=== PATIENT | male | born 1975 | race Caucasian/White ===

== ENCOUNTER 2017-12-03 10:11 | Emergency (ER) | payer OTHER ==
[~2017-12-03] VITALS: Ht 199.4 cm; Wt 81.6 kg
[~2017-12-03 10:11] MED LIST: AMI25 PO; DIPH-740 PO; DOCU-416 PO; GAB800PT PO; GABA-549 PO; IBUP600T22 PO; LOR5 PO; MULT-1379 PO; NIC10R INH; OMEG-23 PO; OXY40 PO; OXYC-511 PO; PAR20 PO; RISP-29 PO
[2017-12-03] MEDS ORDERED: CARB400T8 PO (10:47)
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
[2017-12-03] MEDS ORDERED: BUPR1PAT (11:30)
[2017-12-03] MEDS ORDERED: GABAPENTIN 100 MG CAP PO ONE (11:35)
[2017-12-03] MEDS ORDERED: GABAPENTIN 300 MG CAP PO ONE (11:35)
[2017-12-03 11:39] LABS: PLATELET COUNT, AUTOMATED 404 K/uL (150-450)
--- NOTE | 2017-12-03 12:04 | EKG ---
FACILITY: [facility] PATIENT NAME: GAVNI VIVAS : [id number] MR: [id number] V: [id number] EXAM DATE: ORDERING PHYSICIAN: GAMALIEL CODY TECHNOLOGIST: TERI Dan Reason : PYSCH Blood Pressure : / mmHG Vent. Rate : 090 BPM Atrial Rate : 090 BPM P-R Int : 178 ms QRS Dur : 092 ms QT Int : 368 ms P-R-T Axes : 067 041 061 degrees QTc Int : 450 ms Normal sinus rhythm Normal ECG No previous ECGs available Confirmed by MAXIMO TRIPLETT ([id number]) on 12/04/2017 7:44:29 AM Referred By: STEPHANIE Confirmed By:MAXIMO TRIPLETT
[2017-12-03] MEDS ORDERED: NICOTINE INH SYSTEM 10 MG/INH INH PRN (13:00)
[2017-12-03] MEDS ORDERED: GABA-506 PO (16:17)
== END 2017-12-03 13:45 ==
LOC: ER 10:12
DX: F25.0 Schizoaffective disorder, bipolar type (principal); F17.200 Nicotine dependence, unspecified, uncomplicated; I49.9 Cardiac arrhythmia, unspecified
CPT/HCPCS: 36415; 80305; 80320; 80329; 81001; 82040; 82247; 82310; 82374; 82435; 82565; 82947; 83735; 84075; 84132; 84155; 84295; 84443; 84450; 84460; 84484; 84520; 85025; 93005; 99284

== ENCOUNTER 2017-12-03 13:35 | Inpatient (IN) | payer OTHER ==
[~2017-12-03] VITALS: Ht 182.9 cm; Wt 80.3 kg
[~2017-12-03 13:35] MED LIST changes: +BUPR1PAT; +CARB400T8 PO
[2017-12-03] MEDS ORDERED: MAG HYD/AL HYD/SIMETH 30ML UDC PO PRN (14:15)
[2017-12-03 14:30] VITALS: BP 120/92
[2017-12-03] MEDS: NICOTINE CARTRIDGE 1 EA PO PRN (14:50)
[2017-12-03] MEDS: NICOTINE INH SYSTEM 10 MG/INH INH PRN ×2 (14:50→19:28)
[2017-12-03] MEDS: DIAZEPAM 10 MG TAB PO PRN ×4 (14:50→21:12)
[2017-12-03] MEDS ORDERED: GABA-506 PO (16:17)
[2017-12-03] MEDS: GABAPENTIN 100 MG CAP PO SCH ×2 (17:27→21:12)
[2017-12-03] MEDS: GABAPENTIN 300 MG CAP PO SCH ×2 (17:31→21:12)
[2017-12-03] MEDS: DOCUSATE SODIUM 100 MG CAP PO SCH (21:12)
[2017-12-04 03:18] VITALS: BP 100/60
[2017-12-04] MEDS: DOCUSATE SODIUM 100 MG CAP PO SCH ×2 (08:27→20:42)
[2017-12-04] MEDS: MULTIVITAMINS TAB PO SCH (08:27)
[2017-12-04] MEDS: THIAMINE HCL 100 MG TAB PO SCH (08:28)
[2017-12-04] MEDS: GABAPENTIN 300 MG CAP PO SCH ×4 (08:28→20:42)
[2017-12-04] MEDS: FOLIC ACID 1 MG TAB PO SCH (08:28)
[2017-12-04] MEDS: GABAPENTIN 100 MG CAP PO SCH ×4 (08:28→20:43)
[2017-12-04 08:47] VITALS: BP 123/97
[2017-12-04] MEDS: NICOTINE INH SYSTEM 10 MG/INH INH PRN ×3 (09:04→15:58)
[2017-12-04 10:50] VITALS: BP 121/95
[2017-12-04] MEDS ORDERED: DIAZEPAM 10 MG TAB PO ONE (11:10)
[2017-12-04] MEDS: carBAMazepine 200 MG TAB PO SCH ×2 (11:57→20:43)
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
[2017-12-04] MEDS: hydrOXYzine PAMOATE 25 MG CAP PO PRN (16:19)
[2017-12-04 16:44] VITALS: BP 116/80
[2017-12-04 19:31] VITALS: BP 130/84
[2017-12-04] MEDS ORDERED: risperiDONE 1 MG TAB PO SCH (21:00)
[2017-12-05 01:31] VITALS: BP 114/80
[2017-12-05] MEDS: GABAPENTIN 100 MG CAP PO SCH ×4 (09:00→21:03)
[2017-12-05] MEDS: MULTIVITAMINS TAB PO SCH (09:08)
[2017-12-05] MEDS: GABAPENTIN 300 MG CAP PO SCH ×4 (09:08→21:03)
[2017-12-05] MEDS: FOLIC ACID 1 MG TAB PO SCH (09:08)
[2017-12-05] MEDS: carBAMazepine 200 MG TAB PO SCH ×2 (09:08→21:04)
[2017-12-05] MEDS: THIAMINE HCL 100 MG TAB PO SCH (09:08)
[2017-12-05] MEDS: DOCUSATE SODIUM 100 MG CAP PO SCH ×2 (09:08→21:03)
[2017-12-05] MEDS: NICOTINE INH SYSTEM 10 MG/INH INH PRN ×3 (09:11→18:26)
--- NOTE | 2017-12-05 10:17 | BHS Progress Note ---
[facility] - Subjective Progress Notes Subjective "Getting better slowly." Continues to want to go to the [facility] for treatment. Rates anxiety level a 6. Suicidal Ideation: None Homicidal Ideation: None [facility] - Objective Physical Exam Vital Signs Vital Signs 12/04/17 12/05/17 16:44 01:31 Temp 98.7 Pulse 110 Resp 18 B/P (MAP) 114/80 (91) Pulse Ox 94 O2 Delivery Room Air Muscle Strength and Tone: WNL Gait and Station: Steady [facility] Medications Reviewed: Side Effects, Benefits of Medication, Risks Allergies Reviewed: Yes Mental Status Exam General Appearance: Casual, Well Groomed, Good Eye Contact, Cooperative, Polite , Good Interaction, No Unkept, No Tearful, No Psychomotor Agitation, No Bizarre Mannerisms, No Tics Speech: Clear, Spontaneous, Normal Rate, Normal Rhythm, Normal Volume, Normal Tone Mood: Euthymic Affect: Full and Appropriate, Calm Thought Process: Organized, Logical, Goal Directed, No Loose Associations, No Flight of Ideas Thought Content: No Suicidal Ideation, No Homicidal Ideation, Auditory Halllucinations, Visual Hallucinations Sensorium: Clear Cognition: Alert & Oriented-Person, Alert & Oriented-Place, Alert & Oriented- Time, [id number] Memory: Immediate, Recent, Remote Intelligence: Average Insight Judgment: Fair [facility] Assessment and Plan [id number] Encounter Date: Dec 05, 2017 [id number] Encounter Time: 10:00 [facility] Plan: Admit to Unit, Necessary Precautions, Individual/Group Therapy, Admin /Titrate Meds, Educate Patient (Continue discharge planning) Tobacco Medications: Started Problems: CINDY ZHU NP Dec 05, 2017 10:17
[2017-12-05] MEDS: NICOTINE CARTRIDGE 1 EA PO PRN ×2 (15:41→18:26)
[2017-12-05] MEDS: hydrOXYzine PAMOATE 25 MG CAP PO PRN (15:41)
[2017-12-05 20:15] VITALS: BP 110/75
[2017-12-05] MEDS: risperiDONE 1 MG TAB PO SCH (21:03)
[2017-12-06 06:03] VITALS: BP 127/90
[2017-12-06 08:00] VITALS: BP 145/96
[2017-12-06] MEDS: FOLIC ACID 1 MG TAB PO SCH (08:08)
[2017-12-06] MEDS: GABAPENTIN 100 MG CAP PO SCH ×4 (08:08→21:04)
[2017-12-06] MEDS: GABAPENTIN 300 MG CAP PO SCH ×4 (08:08→21:05)
[2017-12-06] MEDS: THIAMINE HCL 100 MG TAB PO SCH (08:08)
[2017-12-06] MEDS: DOCUSATE SODIUM 100 MG CAP PO SCH ×2 (08:08→21:04)
[2017-12-06] MEDS: MULTIVITAMINS TAB PO SCH (08:08)
[2017-12-06] MEDS: carBAMazepine 200 MG TAB PO SCH ×2 (08:09→21:04)
[2017-12-06] MEDS: NICOTINE INH SYSTEM 10 MG/INH INH PRN ×5 (09:45→21:03)
--- NOTE | 2017-12-06 11:21 | BHS Progress Note ---
[facility] - Subjective Progress Notes Subjective Patient interacting well this AM, and denies any other concerns today. states he is ready to go back to [place] as soon as he can.. States sleep is good, and appetite good. Patient reports good mood overall. Denies any other concerns. Will continue treatment, no changes. Will plan for discharge as soon transportation can be arranged. Suicidal Ideation: None Homicidal Ideation: None [facility] - Objective Physical Exam Vital Signs Vital Signs Date Time Temp Pulse Resp B/P (MAP) Pulse Ox O2 Delivery O2 Flow Rate FiO2 12/06/17 08:00 100.5 117 145/96 (112) 93 Room Air 12/06/17 06:03 16 Hematology Test 12/03/17 10:40 Carbamazepine (Tegretol) Level < 3.0 ug/ml Carbamazepine Time Since Last Dose Unk Carbamazepine Last Dose Date Unk Chemistry Test 12/03/17 10:40 Carbamazepine (Tegretol) Level < 3.0 ug/ml Carbamazepine Time Since Last Dose Unk Carbamazepine Last Dose Date Unk Toxicology Test 12/03/17 10:40 Carbamazepine (Tegretol) Level < 3.0 ug/ml Carbamazepine Time Since Last Dose Unk Carbamazepine Last Dose Date Unk Muscle Strength and Tone: WNL Gait and Station: Steady [facility] Medications Reviewed: Side Effects, Benefits of Medication, Risks Allergies Reviewed: Yes Mental Status Exam General Appearance: Casual, Well Groomed, Good Eye Contact, Cooperative, Polite , Good Interaction, No Unkept, No Tearful, No Psychomotor Agitation, No Bizarre Mannerisms, No Tics Speech: Clear, Spontaneous, Normal Rate, Normal Rhythm, Normal Volume, Normal Tone Mood: Euthymic (stated good today ) Affect: Full and Appropriate, Calm, No Withdrawn, No Tearful, No Anxious, No Agitated Thought Process: Organized, Logical, Goal Directed, No Loose Associations, No Flight of Ideas Thought Content: No Suicidal Ideation, No Homicidal Ideation, No Delusions, Auditory Halllucinations (baseline today ), No Visual Hallucinations, No Thought Broadcasting, No Ideas of Reference, No Obsessions, No Compulsions Sensorium: Clear Cognition: Alert & Oriented-Person, Alert & Oriented-Place, Alert & Oriented- Time, Gcned-Nlxlepsh-Ezqslxkfj Memory: Immediate, Recent, Remote Intelligence: Average Insight Judgment: Fair (improving in absence of alcohol) [facility] Assessment and Plan Cydq-rv-Fsug Encounter Date: Dec 06, 2017 Seua-zd-Vzvs Encounter Time: 11:00 [facility] Plan: Admit to Unit, Necessary Precautions, Individual/Group Therapy, Admin /Titrate Meds, Educate Patient (Continue discharge planning) Tobacco Medications: Started Problems: (1) Schizoaffective disorder, bipolar type Status: Chronic (2) Alcohol use disorder, moderate, in early remission Status: Chronic Condition 1. continue treatment. 2. solidify discharge plans to [facility]. ALMA MCKEON MD Dec 06, 2017 11:21
[2017-12-06] MEDS: IBUPROFEN 600 MG TAB PO PRN (13:03)
[2017-12-06] MEDS: risperiDONE 1 MG TAB PO SCH (21:05)
[2017-12-06 21:23] VITALS: BP 132/93
[2017-12-07 04:12] VITALS: BP 122/95
[2017-12-07] MEDS: NICOTINE INH SYSTEM 10 MG/INH INH PRN ×6 (07:13→20:58)
[2017-12-07 07:15] VITALS: BP 117/98
[2017-12-07] MEDS: DOCUSATE SODIUM 100 MG CAP PO SCH ×2 (08:04→20:42)
[2017-12-07] MEDS: THIAMINE HCL 100 MG TAB PO SCH (08:05)
[2017-12-07] MEDS: carBAMazepine 200 MG TAB PO SCH ×2 (08:05→20:41)
[2017-12-07] MEDS: GABAPENTIN 300 MG CAP PO SCH ×4 (08:05→20:42)
[2017-12-07] MEDS: MULTIVITAMINS TAB PO SCH (08:07)
[2017-12-07] MEDS: GABAPENTIN 100 MG CAP PO SCH ×4 (08:07→20:42)
[2017-12-07] MEDS: FOLIC ACID 1 MG TAB PO SCH (08:08)
--- NOTE | 2017-12-07 10:26 | BHS Progress Note ---
[facility] - Subjective Progress Notes Subjective Patient very polite with this provider today, and states he desires continued help. Plan will be to discharge to [place] to [facility]. Patient denies any other complaints, will work on transportation to [place]. Sleep, appetite, and mood good. No other concerns. Suicidal Ideation: None Homicidal Ideation: None [facility] - Objective Physical Exam Vital Signs Vital Signs Date Time Temp Pulse Resp B/P (MAP) Pulse Ox O2 Delivery O2 Flow Rate FiO2 12/07/17 07:15 98.7 107 117/98 (104) Room Air 12/07/17 04:12 16 95 Hematology Test 12/03/17 10:40 Carbamazepine (Tegretol) Level < 3.0 ug/ml Carbamazepine Time Since Last Dose Unk Carbamazepine Last Dose Date Unk Chemistry Test 12/03/17 10:40 Carbamazepine (Tegretol) Level < 3.0 ug/ml Carbamazepine Time Since Last Dose Unk Carbamazepine Last Dose Date Unk Toxicology Test 12/03/17 10:40 Carbamazepine (Tegretol) Level < 3.0 ug/ml Carbamazepine Time Since Last Dose Unk Carbamazepine Last Dose Date Unk Muscle Strength and Tone: WNL Gait and Station: Steady [facility] Medications Reviewed: Side Effects, Benefits of Medication, Risks Allergies Reviewed: Yes Mental Status Exam General Appearance: Casual, Well Groomed, Good Eye Contact, Cooperative, Polite , Good Interaction, No Unkept, No Tearful, No Psychomotor Agitation, No Psychomotor Retardation, No Bizarre Mannerisms, No Tics Speech: Clear, Spontaneous, Normal Rate, Normal Rhythm, Normal Volume, Normal Tone Mood: Euthymic (stated good today ) Affect: Full and Appropriate, Calm, No Withdrawn, No Tearful, No Anxious, No Agitated Thought Process: Organized, Logical, Goal Directed, No Loose Associations, No Flight of Ideas Thought Content: No Suicidal Ideation, No Homicidal Ideation, No Delusions, Auditory Halllucinations (baseline), No Visual Hallucinations, No Thought Broadcasting, No Ideas of Reference, No Obsessions, No Compulsions Sensorium: Clear Cognition: Alert & Oriented-Person, Alert & Oriented-Place, Alert & Oriented- Time, Uftve-Ktorgvkc-Noyitwzyq Memory: Immediate, Recent, Remote Intelligence: Average Insight Judgment: Fair (improving in absence of alcohol) [facility] Assessment and Plan Traj-id-Gxik Encounter Date: Dec 07, 2017 Gjue-sy-Prqd Encounter Time: 10:00 [facility] Plan: Admit to Unit, Necessary Precautions, Individual/Group Therapy, Admin /Titrate Meds, Educate Patient (Continue discharge planning) Tobacco Medications: Started Problems: (1) Schizoaffective disorder, bipolar type Status: Chronic (2) Alcohol use disorder, moderate, in early remission Status: Chronic Condition 1. no medication changes. 2. continue treatment. 3. arrange transportation to [place]. ALMA MCKEON MD Dec 07, 2017 10:26
[2017-12-07] MEDS: hydrOXYzine PAMOATE 25 MG CAP PO PRN (16:03)
[2017-12-07 20:39] VITALS: BP 132/92
[2017-12-07] MEDS: risperiDONE 1 MG TAB PO SCH (20:41)
[2017-12-08 04:30] VITALS: BP 122/108
[2017-12-08 04:58] VITALS: BP 135/93
[2017-12-08] MEDS: NICOTINE INH SYSTEM 10 MG/INH INH PRN ×6 (07:40→21:00)
[2017-12-08] MEDS: DOCUSATE SODIUM 100 MG CAP PO SCH ×2 (08:03→21:03)
[2017-12-08] MEDS: GABAPENTIN 100 MG CAP PO SCH ×4 (08:04→21:02)
[2017-12-08] MEDS: MULTIVITAMINS TAB PO SCH (08:04)
[2017-12-08] MEDS: GABAPENTIN 300 MG CAP PO SCH ×4 (08:04→21:02)
[2017-12-08] MEDS: THIAMINE HCL 100 MG TAB PO SCH (08:04)
[2017-12-08] MEDS: carBAMazepine 200 MG TAB PO SCH ×2 (08:04→21:03)
[2017-12-08] MEDS: FOLIC ACID 1 MG TAB PO SCH (08:04)
[2017-12-08 08:44] VITALS: BP 138/96
--- NOTE | 2017-12-08 10:45 | BHS Progress Note ---
[facility] - Subjective Progress Notes Subjective Patient remains overall cooperative on the unit, demonstrating some drug seeking behaviors at times, and becoming testy with certain staff. 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 Mood stated good, and denies any other concerns. Suicidal Ideation: None Homicidal Ideation: None [facility] - Objective Physical Exam Vital Signs Vital Signs Date Time Temp Pulse Resp B/P (MAP) Pulse Ox O2 Delivery O2 Flow Rate FiO2 12/08/17 08:44 96.7 96 138/96 (110) 97 Room Air 12/08/17 04:30 16 Hematology Test 12/03/17 10:40 Carbamazepine (Tegretol) Level < 3.0 ug/ml Carbamazepine Time Since Last Dose Unk Carbamazepine Last Dose Date Unk Chemistry Test 12/03/17 10:40 Carbamazepine (Tegretol) Level < 3.0 ug/ml Carbamazepine Time Since Last Dose Unk Carbamazepine Last Dose Date Unk Toxicology Test 12/03/17 10:40 Carbamazepine (Tegretol) Level < 3.0 ug/ml Carbamazepine Time Since Last Dose Unk Carbamazepine Last Dose Date Unk Muscle Strength and Tone: WNL Gait and Station: Steady [facility] Medications Reviewed: Side Effects, Benefits of Medication, Risks Allergies Reviewed: Yes Mental Status Exam General Appearance: Casual, Well Groomed, Good Eye Contact, Cooperative, Polite , Good Interaction, No Unkept, No Tearful, No Psychomotor Agitation, No Psychomotor Retardation, No Bizarre Mannerisms, No Tics Speech: Clear, Spontaneous, Normal Rate, Normal Rhythm, Normal Volume, Normal Tone Mood: Euthymic (stated good today ) Affect: Full and Appropriate, Calm, No Withdrawn, No Tearful, No Anxious, No Agitated Thought Process: Organized, Logical, Goal Directed, No Loose Associations, No Flight of Ideas Thought Content: No Suicidal Ideation, No Homicidal Ideation, No Delusions, Auditory Halllucinations (baseline), No Visual Hallucinations, No Thought Broadcasting, No Ideas of Reference, No Obsessions, No Compulsions Sensorium: Clear Cognition: Alert & Oriented-Person, Alert & Oriented-Place, Alert & Oriented- Time, Tmvac-Rvexhdxg-Eavipmstu Memory: Immediate, Recent, Remote Intelligence: Average Insight Judgment: Fair (improving in absence of alcohol) [facility] Assessment and Plan Iwyk-qn-Ngup Encounter Date: Dec 08, 2017 Smvw-yc-Yqvz Encounter Time: 10:30 [facility] Plan: Admit to Unit, Necessary Precautions, Individual/Group Therapy, Admin /Titrate Meds, Educate Patient (Continue discharge planning) Tobacco Medications: Started Problems: (1) Schizoaffective disorder, bipolar type Status: Chronic (2) Alcohol use disorder, moderate, in early remission Status: Chronic Condition 1. continue treatment. 2. no medication changes. ALMA MCKEON MD Dec 08, 2017 10:45
[2017-12-08] MEDS ORDERED: CALCIUM CARBONATE 500 MG CHEW PO PRN (16:10)
[2017-12-08] MEDS: CALCIUM CARBONATE 500 MG CHEW PO PRN (16:25)
[2017-12-08 20:15] VITALS: BP 147/103
[2017-12-08] MEDS: risperiDONE 1 MG TAB PO SCH (21:03)
[2017-12-08] MEDS: hydrOXYzine PAMOATE 25 MG CAP PO PRN (22:50)
[2017-12-09 03:28] VITALS: BP 130/111
[2017-12-09] MEDS: NICOTINE INH SYSTEM 10 MG/INH INH PRN ×7 (07:31→20:24)
[2017-12-09] MEDS: FOLIC ACID 1 MG TAB PO SCH (08:08)
[2017-12-09] MEDS: DOCUSATE SODIUM 100 MG CAP PO SCH ×2 (08:08→20:24)
[2017-12-09] MEDS: THIAMINE HCL 100 MG TAB PO SCH (08:08)
[2017-12-09] MEDS: MULTIVITAMINS TAB PO SCH (08:08)
[2017-12-09] MEDS: carBAMazepine 200 MG TAB PO SCH ×2 (08:09→20:26)
[2017-12-09] MEDS: GABAPENTIN 300 MG CAP PO SCH ×4 (08:09→20:25)
[2017-12-09] MEDS: GABAPENTIN 100 MG CAP PO SCH ×4 (08:09→20:25)
[2017-12-09] MEDS ORDERED: PATIENT'S OWN MED TD SCH (08:40)
--- NOTE | 2017-12-09 11:59 | BHS Progress Note ---
[facility] - Subjective Progress Notes Subjective Patient certainly continues to exhibit drug seeking behaviors today, will look into OTC patches, that may psychologically fill a void for this patient. Will continue treatment and work toward transfer to [place]. Will continue current medications. Suicidal Ideation: None Homicidal Ideation: None [facility] - Objective Physical Exam Vital Signs Vital Signs Date Time Temp Pulse Resp B/P (MAP) Pulse Ox O2 Delivery O2 Flow Rate FiO2 12/09/17 03:28 98.4 105 16 130/111 (117) 95 Room Air Hematology Test 12/03/17 10:40 Carbamazepine (Tegretol) Level < 3.0 ug/ml Carbamazepine Time Since Last Dose Unk Carbamazepine Last Dose Date Unk Chemistry Test 12/03/17 10:40 Carbamazepine (Tegretol) Level < 3.0 ug/ml Carbamazepine Time Since Last Dose Unk Carbamazepine Last Dose Date Unk Toxicology Test 12/03/17 10:40 Carbamazepine (Tegretol) Level < 3.0 ug/ml Carbamazepine Time Since Last Dose Unk Carbamazepine Last Dose Date Unk Muscle Strength and Tone: WNL Gait and Station: Steady [facility] Medications Reviewed: Side Effects, Benefits of Medication, Risks Allergies Reviewed: Yes Mental Status Exam General Appearance: Casual, Well Groomed, Good Eye Contact, Cooperative, Polite , Good Interaction, No Unkept, No Tearful, No Psychomotor Agitation, No Psychomotor Retardation, No Bizarre Mannerisms, No Tics Speech: Clear, Spontaneous, Normal Rate, Normal Rhythm, Normal Volume, Normal Tone Mood: Euthymic (stated good today ) Affect: Full and Appropriate, Calm, No Withdrawn, No Tearful, No Anxious, No Agitated Thought Process: Organized, Logical, Goal Directed, No Loose Associations, No Flight of Ideas Thought Content: No Suicidal Ideation, No Homicidal Ideation, No Delusions, Auditory Halllucinations (baseline), No Visual Hallucinations, No Thought Broadcasting, No Ideas of Reference, No Obsessions, No Compulsions Sensorium: Clear Cognition: Alert & Oriented-Person, Alert & Oriented-Place, Alert & Oriented- Time, Zhfnh-Gcwsxqjo-Lofkjnefw Memory: Immediate, Recent, Remote Intelligence: Average Insight Judgment: Fair (improving in absence of alcohol) [facility] Assessment and Plan Aduf-tx-Msct Encounter Date: Dec 09, 2017 Bwod-am-Yuxy Encounter Time: 08:40 [facility] Plan: Admit to Unit, Necessary Precautions, Individual/Group Therapy, Admin /Titrate Meds, Educate Patient (Continue discharge planning) Tobacco Medications: Started Problems: (1) Schizoaffective disorder, bipolar type Status: Chronic (2) Alcohol use disorder, moderate, in early remission Status: Chronic Condition 1. look into alternative medications for pain. (non opiate) 2. continue treatment. ALMA MCKEON MD Dec 09, 2017 11:59
[2017-12-09 12:23] VITALS: BP 138/98
[2017-12-09] MEDS: IBUPROFEN 600 MG TAB PO PRN (14:45)
[2017-12-09] MEDS: hydrOXYzine PAMOATE 25 MG CAP PO PRN ×2 (14:45→22:00)
[2017-12-09] MEDS: risperiDONE 1 MG TAB PO SCH (20:25)
[2017-12-09 23:37] VITALS: BP 132/114
[2017-12-10 04:23] VITALS: BP 146/92
[2017-12-10] MEDS: NICOTINE INH SYSTEM 10 MG/INH INH PRN ×7 (06:22→22:01)
[2017-12-10] MEDS: THIAMINE HCL 100 MG TAB PO SCH (07:57)
[2017-12-10] MEDS: GABAPENTIN 100 MG CAP PO SCH ×4 (07:57→20:15)
[2017-12-10] MEDS: DOCUSATE SODIUM 100 MG CAP PO SCH ×2 (07:57→20:14)
[2017-12-10] MEDS: FOLIC ACID 1 MG TAB PO SCH (07:57)
[2017-12-10] MEDS: MULTIVITAMINS TAB PO SCH (07:57)
[2017-12-10] MEDS: GABAPENTIN 300 MG CAP PO SCH ×4 (07:57→20:15)
[2017-12-10] MEDS: carBAMazepine 200 MG TAB PO SCH ×2 (07:58→20:15)
--- NOTE | 2017-12-10 09:59 | BHS Progress Note ---
[facility] - Subjective Progress Notes Subjective Patient doing well today, states "I want to continue reading the bible today" mood in the middle today, [place] Appetite and sleep good, Some minimal medication seeking behaviors continue. No other concerns. Suicidal Ideation: None Homicidal Ideation: None [facility] - Objective Physical Exam Vital Signs Vital Signs Date Time Temp Pulse Resp B/P (MAP) Pulse Ox O2 Delivery O2 Flow Rate FiO2 12/10/17 04:23 98.1 146/92 (110) 97 Room Air 12/09/17 23:37 102 12/09/17 03:28 16 Hematology Test 12/03/17 10:40 Carbamazepine (Tegretol) Level < 3.0 ug/ml Carbamazepine Time Since Last Dose Unk Carbamazepine Last Dose Date Unk Chemistry Test 12/03/17 10:40 Carbamazepine (Tegretol) Level < 3.0 ug/ml Carbamazepine Time Since Last Dose Unk Carbamazepine Last Dose Date Unk Toxicology Test 12/03/17 10:40 Carbamazepine (Tegretol) Level < 3.0 ug/ml Carbamazepine Time Since Last Dose Unk Carbamazepine Last Dose Date Unk Muscle Strength and Tone: WNL Gait and Station: Steady [facility] Medications Reviewed: Side Effects, Benefits of Medication, Risks Allergies Reviewed: Yes Mental Status Exam General Appearance: Casual, Well Groomed, Good Eye Contact, Cooperative, Polite , Good Interaction, No Unkept, No Tearful, No Psychomotor Agitation, No Psychomotor Retardation, No Bizarre Mannerisms, No Tics Speech: Clear, Spontaneous, Normal Rate, Normal Rhythm, Normal Volume, Normal Tone Mood: Euthymic (stated okay today ) Affect: Full and Appropriate, Calm, No Withdrawn, No Tearful, No Anxious, No Agitated Thought Process: Organized, Logical, Goal Directed, No Loose Associations, No Flight of Ideas Thought Content: No Suicidal Ideation, No Homicidal Ideation, No Delusions, Auditory Halllucinations (baseline), No Visual Hallucinations, No Thought Broadcasting, No Ideas of Reference, No Obsessions, No Compulsions Sensorium: Clear Cognition: Alert & Oriented-Person, Alert & Oriented-Place, Alert & Oriented- Time, Zfysy-Wleacamr-Jnkhvvvie Memory: Immediate, Recent, Remote Intelligence: Average Insight Judgment: Fair (improving in absence of alcohol) [facility] Assessment and Plan Bfto-le-Titw Encounter Date: Dec 10, 2017 Pczb-ua-Ptjb Encounter Time: 10:00 [facility] Plan: Admit to Unit, Necessary Precautions, Individual/Group Therapy, Admin /Titrate Meds, Educate Patient (Continue discharge planning) Tobacco Medications: Started Problems: (1) Schizoaffective disorder, bipolar type Status: Chronic (2) Alcohol use disorder, moderate, in early remission Status: Chronic Condition 1. continue treatment 2. plan for 15 December discharge to [place]. ALMA MCKEON MD Dec 10, 2017 09:59
[2017-12-10] MEDS: hydrOXYzine PAMOATE 25 MG CAP PO PRN ×2 (12:18→22:01)
[2017-12-10 13:10] VITALS: BP 138/96
[2017-12-10] MEDS: CALCIUM CARBONATE 500 MG CHEW PO PRN (16:37)
[2017-12-10 19:20] VITALS: BP 154/115
[2017-12-10] MEDS: risperiDONE 1 MG TAB PO SCH (20:15)
[2017-12-10] MEDS: IBUPROFEN 600 MG TAB PO PRN (22:01)
[2017-12-11 06:37] VITALS: BP 124/80
[2017-12-11] MEDS: NICOTINE INH SYSTEM 10 MG/INH INH PRN ×8 (06:41→21:19)
[2017-12-11] MEDS: GABAPENTIN 300 MG CAP PO SCH ×4 (08:09→20:18)
[2017-12-11] MEDS: carBAMazepine 200 MG TAB PO SCH ×2 (08:09→20:19)
[2017-12-11] MEDS: THIAMINE HCL 100 MG TAB PO SCH (08:09)
[2017-12-11] MEDS: MULTIVITAMINS TAB PO SCH (08:10)
[2017-12-11] MEDS: GABAPENTIN 100 MG CAP PO SCH ×4 (08:10→20:18)
[2017-12-11] MEDS: DOCUSATE SODIUM 100 MG CAP PO SCH ×2 (08:10→20:19)
[2017-12-11] MEDS: FOLIC ACID 1 MG TAB PO SCH (08:10)
--- NOTE | 2017-12-11 11:34 | BHS Progress Note ---
[facility] - Subjective Progress Notes Subjective "I've been to the [facility] before, they are going to set me up for a shelter." Patient requesting pain medication, declines options other than opioids States was recently discharged from [facility]. Rates depression "3" Anxiety "2" Sleep variable Anger "a little bit" Denies urge for self harm, suicidal or homicidal ideation MH history: Previous admission to [facility], in May 2017. He reports a history of three hospitalizations at [facility] and five admissions at the [facility] with a discharge one month ago. He was treated at a facility called [facility] in [place], [place], which is where he wants to return. CURRENT MEDICATIONS 1. Risperdal 6 mg at bedtime. 2. Tegretol 400 mg twice a day. 3. Gabapentin 800 mg four times a day for neuropathic pain as well as anxiety. Suicidal Ideation: None Homicidal Ideation: None [facility] - Objective Physical Exam Muscle Strength and Tone: WNL Gait and Station: Steady [facility] Medications Reviewed: Side Effects, Benefits of Medication, Risks Allergies Reviewed: Yes Mental Status Exam General Appearance: Casual, Well Groomed, Good Eye Contact, Cooperative, Polite , Good Interaction, No Unkept, No Tearful, No Psychomotor Agitation, No Psychomotor Retardation, No Bizarre Mannerisms, No Tics Speech: Clear, Spontaneous, Normal Rate, Normal Rhythm, Normal Volume, Normal Tone Mood: No Euthymic (Irritable during interview/ labile), Other (Irritable) Affect: Full and Appropriate, Calm, No Withdrawn, No Tearful, No Anxious, No Agitated Thought Process: Organized, Logical, Goal Directed, No Loose Associations, No Flight of Ideas Thought Content: No Suicidal Ideation, No Homicidal Ideation, No Delusions, Auditory Halllucinations (baseline), No Visual Hallucinations, No Thought Broadcasting, No Ideas of Reference, No Obsessions, No Compulsions Sensorium: Clear Cognition: Alert & Oriented-Person, Alert & Oriented-Place, Alert & Oriented- Time, Uviug-Dczlebhi-Vudiztycb Memory: Immediate, Recent, Remote Intelligence: Average Insight Judgment: Fair (improving in absence of alcohol) Lab Vital Signs Date Time Temp Pulse Resp B/P (MAP) Pulse Ox O2 Delivery O2 Flow Rate FiO2 12/11/17 06:37 97.8 86 124/80 (95) 94 Room Air 12/10/17 13:10 16 Allergies Coded Allergies No Known Drug Allergies (Verified12/20/07) [facility] Assessment and Plan Auza-el-Ujki Encounter Date: Dec 11, 2017 Yulz-gy-Cpje Encounter Time: 11:15 [facility] Plan: Admit to Unit, Necessary Precautions, Individual/Group Therapy, Admin /Titrate Meds, Educate Patient (Continue discharge planning) Tobacco Medications: No Bupropion (Wellbutrin), No Varenicline (Chantix), Started, No Refused, No Not Appropriate Condition, No Contrainidicated Problems: (1) Schizoaffective disorder, bipolar type Status: Chronic (2) Alcohol use disorder, moderate, in early remission Status: Chronic (3) 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
[2017-12-11] MEDS: LIDOCAINE 5% PATCH TP SCH (13:40)
[2017-12-11] MEDS: hydrOXYzine PAMOATE 25 MG CAP PO PRN (15:58)
[2017-12-11] MEDS: IBUPROFEN 600 MG TAB PO PRN ×2 (15:59→22:33)
[2017-12-11 20:15] VITALS: BP 146/105
[2017-12-11] MEDS: risperiDONE 1 MG TAB PO SCH (20:19)
[2017-12-11] MEDS ORDERED: PATCH REMOVAL 1 EA TP SCH (21:00)
[2017-12-12] MEDS ORDERED: GABAPENTIN 100 MG CAP PO SCH
[2017-12-12] MEDS ORDERED: GABAPENTIN 300 MG CAP PO SCH
[2017-12-12 05:32] VITALS: BP 138/90
[2017-12-12] MEDS: NICOTINE INH SYSTEM 10 MG/INH INH PRN (07:19)
[2017-12-12] MEDS: GABAPENTIN 300 MG CAP PO SCH (08:22)
[2017-12-12] MEDS: GABAPENTIN 100 MG CAP PO SCH (08:22)
[2017-12-12] MEDS: carBAMazepine 200 MG TAB PO SCH (08:22)
[2017-12-12] MEDS: FOLIC ACID 1 MG TAB PO SCH (08:23)
[2017-12-12] MEDS: MULTIVITAMINS TAB PO SCH (08:23)
[2017-12-12] MEDS: DOCUSATE SODIUM 100 MG CAP PO SCH (08:23)
[2017-12-12] MEDS: THIAMINE HCL 100 MG TAB PO SCH (08:23)
[2017-12-12] MEDS: LIDOCAINE 5% PATCH TP SCH (08:55)
[2017-12-12] MEDS ORDERED: RISP-29 PO (09:21)
[2017-12-12] MEDS ORDERED: MULT-7 (09:22)
[2017-12-12] MEDS ORDERED: THIA100T2 PO (09:23)
--- NOTE | 2017-12-12 09:25 | BHS Progress Note ---
[facility] - Subjective Progress Notes Subjective "I'm a little anxious." Friend, Pardeep Acevedo, present today to provide transportation to [facility], [place], [place] Denies depression, anxiety rated "1" 1-10 scale, 10 worst Instructed to avoid etoh, illicit substances Suicidal Ideation: None Homicidal Ideation: None [facility] - Objective Physical Exam Muscle Strength and Tone: WNL Gait and Station: Steady [facility] Medications Reviewed: Side Effects, Benefits of Medication, Risks Allergies Reviewed: Yes Mental Status Exam General Appearance: Casual, Well Groomed, Good Eye Contact, Cooperative, Polite , Good Interaction, No Unkept, No Tearful, No Psychomotor Agitation, No Psychomotor Retardation, No Bizarre Mannerisms, No Tics Speech: Clear, Spontaneous, Normal Rate, Normal Rhythm, Normal Volume, Normal Tone Mood: Euthymic, Other Affect: Full and Appropriate, Calm, No Withdrawn, No Tearful, No Anxious, No Agitated Thought Process: Organized, Logical, Goal Directed, No Loose Associations, No Flight of Ideas Thought Content: No Suicidal Ideation, No Homicidal Ideation, No Delusions, No Auditory Halllucinations, No Visual Hallucinations, No Thought Broadcasting, No Ideas of Reference, No Obsessions, No Compulsions Sensorium: Clear Cognition: Alert & Oriented-Person, Alert & Oriented-Place, Alert & Oriented- Time, Tagrg-Dozfyvdk-Qrwrkgilb Memory: Immediate, Recent, Remote Intelligence: Average Insight Judgment: Intact, Appropriate, Fair Lab Vital Signs Date Time Temp Pulse Resp B/P (MAP) Pulse Ox O2 Delivery O2 Flow Rate FiO2 12/12/17 05:32 98.9 108 138/90 (106) 96 Room Air 12/10/17 13:10 16 Allergies Coded Allergies No Known Drug Allergies (Verified12/20/07) [facility] Assessment and Plan Bjyj-wa-Vzfh Encounter Date: Dec 12, 2017 Hpxg-er-Scom Encounter Time: 09:50 [facility] Plan: Admit to Unit, Necessary Precautions, Individual/Group Therapy, Admin /Titrate Meds, Educate Patient (Continue discharge planning) Tobacco Medications: No Bupropion (Wellbutrin), No Varenicline (Chantix), Started, No Refused, No Not Appropriate Condition, No Contrainidicated Problems: (1) Schizoaffective disorder, bipolar type Status: Chronic (2) Alcohol use disorder, moderate, in early remission Status: Chronic (3) Neuropathy of left lower extremity Status: Chronic Condition Discharge to responsible adult for transportation to [facility] [place] Instructed to abstain from etoh, illicit substances Follow up care through [facility] facility, to call upon patient's arrival ZHENG MORENO NP Dec 12, 2017 09:25
--- NOTE | 2017-12-13 06:19 | DISCHARGE SUMMARY ---
FINAL DIAGNOSES PER DSM-V Schizoaffective disorder, bipolar type. Alcohol use disorder, moderate, early remission. Neuropathy, left lower extremity. BRIEF HISTORY This is a 42-year-old male who was admitted to the behavioral health unit on a voluntary basis after he presented to the emergency room requesting admission. He had reported he was recently discharged from the [facility] approximately one month ago, came back to [place] to live with a friend, has not followed up with psychiatric care at [facility], and reporting he is hearing voices and seeing shadows of people since age 11. He reported his Risperdal made the psychotic symptoms tolerable and not as bothersome. He is denying suicidal or homicidal ideation. He reported having increased pain since he ran out of gabapentin, and due to the pain he started drinking approximately one week ago up to 2 pints a day. He was rating moderate depression and high levels of anxiety and anger as well as guilt. He has previously been treated at a facility called [facility] in [place], [place] and wanted to return. Patient was continued on his Risperdal, Tegretol and gabapentin during his hospitalization. He was active with individual and group therapy, reporting desire for sobriety and to return to the residential treatment facility in [place]. Patient was accepted at the facility, [facility] with bed available and awaiting his arrival following acceptance. Patient was discharged to the care of a responsible adult who had agreed to provide transportation to [place] versus [facility] transportation, as had been previously arranged. Patient was denying suicidal or homicidal ideation, again reporting desire to attend the residential treatment, and has gained acceptance. PHYSICAL EXAMINATION Please see emergency room note for physical exam. Vital signs at time of admission included temperature 98.1, respiratory rate 16, blood pressure 138/96 , pulse oximetry 94% on room air. Vital signs at time of discharge include temperature 98.9, pulse 108, blood pressure 138/90, pulse oximetry 96% on room air. LABORATORY DATA CBC within normal limits. RBC slightly elevated 6.18. Chemistry panel within normal limits. AST slightly elevated at 52, chloride low 97, thyroid stimulating hormone 1.24. Urine screen within normal limits. Toxicology including serum alcohol level 145, salicylate, acetaminophen levels less than 10. Urine screen negative for opiates, barbiturates, tricyclics, phencyclidine , amphetamines, benzodiazepines, cocaine and cannabinoids. MENTAL STATUS EXAMINATION GENERAL APPEARANCE, BEHAVIOR AND ATTITUDE: Patient is calm, cooperative, no periods of tearfulness at time of discharge interview, no psychomotor agitation or retardation, no bizarre mannerisms or tics. SPEECH: Regular rate, rhythm, volume and tone. MOOD: Mostly euthymic. AFFECT: Minimally constricted, mood congruent. THOUGHT PROCESSES: Logical and goal-directed. No loose associations or flight of ideas. THOUGHT CONTENT: Free of auditory or visual hallucinations, ideas of reference , thought broadcasting, delusions, obsessions, compulsions. Denying suicidal or homicidal ideation. SENSORIUM: Clear. COGNITION: Alert and oriented to person, place, time and situation. MEMORY: Immediate, recent and remote estimated intact. INTELLIGENCE: Average, based on interview. INSIGHT AND JUDGMENT: Considered appropriate and intact. CONSULTATIONS None. TREATMENT Patient again participated in individual and group therapy, continued on his psychotropic medications. Denying side effect, and reports benefit from use. Patient was accepted into the [facility]. Bed has been accepted for this patient. He was originally going to be transferred by [facility] personnel, although obtained consent from a friend by private vehicle. He was discharged in the care of a responsible adult. CONDITION OF PATIENT ON DISCHARGE Stable. He is considered a minimal risk to himself or others. DISPOSITION This patient is again discharged to the care of a responsible adult to be transported to [facility] in [place], [place]. The patient has been accepted. MEDICATIONS 1. Neurontin 800 mg 4 times daily. 2. Risperdal 6 mg p.o. at bedtime. 3. Tegretol 400 mg p.o. twice daily. 4. Multivitamin 1 p.o. daily. 5. Vitamin B 100 mg p.o. daily. 6. Nicotrol cartridge/inhaler every two hours as needed. DISCHARGE INSTRUCTIONS Patient is to take medications only as prescribed. He is to abstain from alcohol and all illicit substances. Follow up with medication management and therapy through [facility]. They have been contacted to inform of anticipated arrival. The crisis line number is provided, encouraged use for worsening symptoms, suicidal or homicidal ideation. Patient to contact behavioral health unit upon arrival at facility. Patient is to return to the emergency room for worsening symptoms, suicidal or homicidal ideation. Patient is competent, agreeable with the above discharge plan. [facility]
== END 2017-12-12 10:00 | DRG 885 ==
LOC: BHS 13:35
PROVIDERS: ADMIT Psychiatry & Neurology Psychiatry; ATTEND Psychiatry & Neurology Psychiatry
DX: F25.0 Schizoaffective disorder, bipolar type (principal); F10.220 Alcohol dependence with intoxication, uncomplicated; F41.8 Other specified anxiety disorders; G89.29 Other chronic pain; G62.9 Polyneuropathy, unspecified; F17.210 Nicotine dependence, cigarettes, uncomplicated; F17.220 Nicotine dependence, chewing tobacco, uncomplicated; Y90.6 Blood alcohol level of 120-199 mg/100 ml; Z81.8 Family history of other mental and behavioral disorders; Z91.5 Personal history of self-harm
CPT/HCPCS: 80156; 90853; Q0177